=== PATIENT | male | born 1955 | race Caucasian/White ===

== ENCOUNTER 2020-09-12 11:29 | Outpatient (CLI) | payer MEDICARE | END 2020-09-12 11:30 | disposition home or self-care (01) | LOC: RAD 11:29 | PROVIDERS: ATTEND Physician Assistant Medical | DX: C22.0 Liver cell carcinoma (principal); I81 Portal vein thrombosis; B18.2 Chronic viral hepatitis C; K74.60 Unspecified cirrhosis of liver; R06.00 Dyspnea, unspecified | CPT/HCPCS: 71046 ==

== ENCOUNTER 2020-11-01 12:48 | Day surgery (SDC) | payer MEDICARE ==
[2020-11-01 10:35] VITALS: BMI 30.7
[2020-11-01 13:20] LABS: INR-International Normal Ratio 1.4; Prothrombin Time 16.8 sec (12.0-14.7)
[2020-11-01 13:21] LABS: PTT 35.5 sec (22.9-36.1)
[2020-11-01] MEDS ORDERED: Sodium Bicarbonate 2.5 MEQ/5 ML VIAL ONE (14:11)
[2020-11-01] MEDS ORDERED: Lidocaine 1% PF 5 ML VIAL ONE (14:11)
[2020-11-01 15:15] VITALS: BP 124/72; TEMP 98
== END 2020-11-01 15:15 | disposition home or self-care (01) ==
LOC: ULT 12:48 → EDSTATUS 13:00 → ULT 15:15
PROVIDERS: ATTEND Internal Medicine Critical Care Medicine
PROC: 0W993ZZ Drainage of Right Pleural Cavity, Percutaneous Approach (ICD-10-PCS; principal; 2020-11-01)
PROC: 0W9G3ZX Drainage of Peritoneal Cavity, Percutaneous Approach, Diagnostic (ICD-10-PCS; 2020-11-01)
DX: J90 Pleural effusion, not elsewhere classified (principal); K70.31 Alcoholic cirrhosis of liver with ascites; E11.9 Type 2 diabetes mellitus without complications; M10.9 Gout, unspecified; I10 Essential (primary) hypertension; G89.29 Other chronic pain; C22.0 Liver cell carcinoma; F10.11 Alcohol abuse, in remission; Z79.899 Other long term (current) drug therapy; Z91.048 Other nonmedicinal substance allergy status
CPT/HCPCS: 49083; 71045; 76942; 85610; 85730; 87070; 87205

== ENCOUNTER 2020-11-06 12:31 | Outpatient (CLI) | payer MEDICARE | END 2020-11-06 12:32 | disposition home or self-care (01) | LOC: BICRAD 12:31 | PROVIDERS: ATTEND Internal Medicine Critical Care Medicine | DX: R06.00 Dyspnea, unspecified (principal); J90 Pleural effusion, not elsewhere classified; J98.11 Atelectasis | CPT/HCPCS: 71046 ==

== ENCOUNTER → 2020-12-01 | Day surgery (SDC) | payer MEDICARE ==
[~2020-12-01] MED LIST: Lidocaine 1% PF 5 ML VIAL ONE; Sodium Bicarbonate 2.5 MEQ/5 ML VIAL ONE
[2020-12-01 08:08] LABS: #Eosinphils 0.2 thou/uL (0.0-0.7); #Lymphocytes 1.2 thou/uL (1.20-3.40); #Monocytes 0.4 thou/uL (0.11-0.59); #Neutrophils 2.9 thou/uL (1.40-6.50); %Basophils 0.8 % (0.0-1.0); %Eosinophils 4.6 % (0.0-10.0); %Lymphocytes 25.6 % (21.0-51.0); %Monocytes 8.2 % (0.0-10.0); %Neutrophils 60.8 % (42.0-75.0); Mean Corpuscular HGB CONC 32.5 g/dL (32.0-36.0); Mean Corpuscular Hemoglobin 33.2 pg (27.0-31.0); Mean Platelet Volume 7.8 fL (7.4-10.4); Platelet Count 85 thou/uL (130-400); RBC Distribution Width 16.7 % (11.5-14.5); Red Blood Cell (RBC) Count 4.52 mill/uL (4.70-6.10); White Blood Cell (WBC) Count 4.8 thou/uL (4.8-10.8)
[2020-12-01 08:17] LABS: INR-International Normal Ratio 1.3; Prothrombin Time 16.1 sec (12.0-14.7)
[2020-12-01 11:37] VITALS: BP 106/70
== END ==
LOC: ULT 07:50
PROVIDERS: ATTEND Internal Medicine Hematology & Oncology
PROC: 0W9G3ZZ Drainage of Peritoneal Cavity, Percutaneous Approach (ICD-10-PCS; principal; 2020-12-01)
PROC: 0W993ZZ Drainage of Right Pleural Cavity, Percutaneous Approach (ICD-10-PCS; 2020-12-01)
DX: J90 Pleural effusion, not elsewhere classified (principal); K74.60 Unspecified cirrhosis of liver; R18.8 Other ascites; C22.0 Liver cell carcinoma; I10 Essential (primary) hypertension; E11.9 Type 2 diabetes mellitus without complications; B19.20 Unspecified viral hepatitis C without hepatic coma; M10.9 Gout, unspecified; F10.11 Alcohol abuse, in remission; Z87.891 Personal history of nicotine dependence; Z79.01 Long term (current) use of anticoagulants; Z79.899 Other long term (current) drug therapy
CPT/HCPCS: 36415; 49083; 71045; 76942; 85025; 85610; 85730

== ENCOUNTER 2020-12-11 17:21 | Observation (INO) | payer MEDICARE ==
[2020-12-11 17:54] LABS: #Basophils 0.1 thou/uL (0.0-0.2); #Eosinphils 0.2 thou/uL (0.0-0.7); #Lymphocytes 1.4 thou/uL (1.20-3.40); #Monocytes 0.7 thou/uL (0.11-0.59); #Neutrophils 4.5 thou/uL (1.40-6.50); %Basophils 0.9 % (0.0-1.0); %Eosinophils 2.9 % (0.0-10.0); %Lymphocytes 20.8 % (21.0-51.0); %Monocytes 9.7 % (0.0-10.0); %Neutrophils 65.8 % (42.0-75.0); Hemoglobin 16.4 g/dL (14.0-18.0); Mean Corpuscular Hemoglobin 32.3 pg (27.0-31.0); Mean Corpuscular Volume 97.8 fL (78.0-98.0); Mean Platelet Volume 7.3 fL (7.4-10.4); Platelet Count 200 thou/uL (130-400); RBC Distribution Width 16.2 % (11.5-14.5); Red Blood Cell (RBC) Count 5.07 mill/uL (4.70-6.10); White Blood Cell (WBC) Count 6.8 thou/uL (4.8-10.8)
[2020-12-11 19:25] LABS: Albumin 2.5 g/dL (3.4-4.8)
[2020-12-11 19:26] LABS: Chloride 101 mmol/L (98-107); Potassium 4.7 mmol/L (3.5-5.1); Sodium 133 mmol/L (136-145)
[2020-12-11 19:27] LABS: Calcium 8.8 mg/dL (7.8-10.44)
[2020-12-11 19:28] LABS: Globulin 5.6 g/dL (2.4-3.5); Glucose 110 mg/dL (80-115); Protein, Total 8.1 g/dL (5.8-8.1)
[2020-12-11 19:29] LABS: Anion Gap 15 mmol/L (10-20); Bilirubin, Total 3.5 mg/dL (0.2-1.2); Carbon Dioxide 22 mmol/L (23-31)
[2020-12-11 19:30] LABS: Alkaline Phosphatase 78 U/L (40-110)
[2020-12-11 19:31] LABS: Calc. Creatinine Clearance 0 mL/min (70-130)
[2020-12-11 19:32] LABS: BUN (Urea Nitrogen) 19 mg/dL (8.4-25.7)
[2020-12-11 19:33] LABS: AST (SGOT) 189 U/L (5-34)
[2020-12-11 19:34] LABS: ALT (SGPT) 480 U/L (8-55)
[2020-12-11] MEDS ORDERED: Guaifenesin DM 100-10/5 ML UDCUP PO PRN (22:04)
[2020-12-11] MEDS ORDERED: Senokot S 8.6-50 MG TAB PO PRN (22:04)
[2020-12-11] MEDS ORDERED: Ondansetron PF 4 MG/2 ML Vial IVP PRN (22:04)
[2020-12-11] MEDS ORDERED: HYDROcodone/Acetaminophen 5/325 mg Tablet PO PRN (22:04)
[2020-12-11] MEDS ORDERED: Acetaminophen 325 MG TAB PO PRN (22:04)
[2020-12-11] MEDS ORDERED: HYDROcodone/Acetaminophen 7.5/325 mg Tablet PO PRN (22:04)
[2020-12-11] MEDS ORDERED: hydrALAZINE 20 MG/ML VIAL SLOW IVP PRN (22:09)
[2020-12-11] MEDS ORDERED: Famotidine/PF 20 mg/2ml Vial SLOW IVP SCH (23:00)
[2020-12-11] MEDS ORDERED: Dextrose 50% Abboject 50 ML SYRINGE SLOW IVP PRN (23:01)
[2020-12-11] MEDS ORDERED: Dextrose 5% in Water 1,000 ML IV PRN (23:01)
[2020-12-11 23:07] LABS: SARS-CoV-2 NAA Rapid Test Not Detected (NotDetected)
[2020-12-11 23:47] VITALS: BMI 28.1
[2020-12-12 00:32] LABS: Troponin I Less than 0.010 ng/mL (< 0.028)
[2020-12-12 06:54] LABS: Anion Gap 13 mmol/L (10-20); BUN (Urea Nitrogen) 19 mg/dL (8.4-25.7); Calc. Creatinine Clearance 110 mL/min (70-130); Calcium 8.5 mg/dL (7.8-10.44); Carbon Dioxide 18 mmol/L (23-31); Chloride 105 mmol/L (98-107); Glucose 93 mg/dL (80-115); Potassium 4.8 mmol/L (3.5-5.1); Sodium 131 mmol/L (136-145); Uric Acid 8.3 mg/dL (3.5-7.2)
[2020-12-12 08:01] LABS: Hemoglobin A1c 4.8 % (4.0-6.0)
[2020-12-12 08:09] LABS: INR-International Normal Ratio 1.4; Prothrombin Time 17.6 sec (12.0-14.7)
[2020-12-12 08:10] LABS: PTT 36.7 sec (22.9-36.1)
[2020-12-12] MEDS: Furosemide 40 MG TAB PO SCH (08:31)
[2020-12-12] MEDS: Spironolactone 100 MG TAB PO SCH (08:31)
[2020-12-12] MEDS: Propranolol 10 MG TAB PO SCH ×2 (08:31→20:07)
[2020-12-12] MEDS: Famotidine/PF 20 mg/2ml Vial SLOW IVP SCH ×2 (08:32→20:07)
[2020-12-12 08:48] LABS: #Eosinphils 0.1 thou/uL (0.0-0.7); #Monocytes 0.6 thou/uL (0.11-0.59); #Neutrophils 2.3 thou/uL (1.40-6.50); %Basophils 0.9 % (0.0-1.0); %Eosinophils 3.3 % (0.0-10.0); %Lymphocytes 25.2 % (21.0-51.0); %Monocytes 14.5 % (0.0-10.0); %Neutrophils 56.1 % (42.0-75.0); Hemoglobin 14.6 g/dL (14.0-18.0); Mean Corpuscular HGB CONC 34.7 g/dL (32.0-36.0); Mean Corpuscular Hemoglobin 33.9 pg (27.0-31.0); Mean Corpuscular Volume 97.6 fL (78.0-98.0); Mean Platelet Volume 7.5 fL (7.4-10.4); Platelet Count 112 thou/uL (130-400); Platelet Morphology Comment Appears Decreased; RBC Distribution Width 15.6 % (11.5-14.5); RBC Morphology Normal
[2020-12-12] MEDS ORDERED: LENVATINIB MESYLATE 4 MG PO SCH (09:00)
[2020-12-12 13:21] LABS: RBC Count-Automated (BF) 1888 /cu.mm; WBC/Nucleated-Auto (BF) 277 uL
[2020-12-12 13:24] LABS: BF Color Yellow; Body Fluid Source Pleural Fluid; Clarity Hazy (Clear); Tube # EDTA
[2020-12-12 13:33] LABS: Pleural Fluid, Protein 2.1 g/dL
[2020-12-12 13:42] LABS: BF Segmented Neutrophils 9 %; Cell Count Non Hematic 69 %; Eosinophils 2 %; Lymphocytes 18 %
[2020-12-13 05:46] LABS: #Eosinphils 0.1 thou/uL (0.0-0.7); #Monocytes 0.6 thou/uL (0.11-0.59); #Neutrophils 2.9 thou/uL (1.40-6.50); %Basophils 0.9 % (0.0-1.0); %Eosinophils 2.8 % (0.0-10.0); %Lymphocytes 21.5 % (21.0-51.0); %Monocytes 13.5 % (0.0-10.0); %Neutrophils 61.3 % (42.0-75.0); Hemoglobin 16.1 g/dL (14.0-18.0); Mean Corpuscular HGB CONC 33.9 g/dL (32.0-36.0); Mean Corpuscular Hemoglobin 33.4 pg (27.0-31.0); Mean Corpuscular Volume 98.6 fL (78.0-98.0); Mean Platelet Volume 7.4 fL (7.4-10.4); Platelet Count 130 thou/uL (130-400); White Blood Cell (WBC) Count 4.7 thou/uL (4.8-10.8)
[2020-12-13 06:07] LABS: ALT (SGPT) 482 U/L (8-55); AST (SGOT) 174 U/L (5-34); Albumin 2.2 g/dL (3.4-4.8); Alkaline Phosphatase 73 U/L (40-110); Anion Gap 11 mmol/L (10-20); BUN (Urea Nitrogen) 19 mg/dL (8.4-25.7); Bilirubin, Total 2.8 mg/dL (0.2-1.2); Calc. Creatinine Clearance 96 mL/min (70-130); Calcium 8.4 mg/dL (7.8-10.44); Carbon Dioxide 22 mmol/L (23-31); Chloride 104 mmol/L (98-107); Globulin 4.9 g/dL (2.4-3.5); Glucose 101 mg/dL (80-115); Potassium 4.2 mmol/L (3.5-5.1); Protein, Total 7.1 g/dL (5.8-8.1); Sodium 133 mmol/L (136-145)
[2020-12-13] MEDS: Spironolactone 100 MG TAB PO SCH (08:22)
[2020-12-13] MEDS: Propranolol 10 MG TAB PO SCH (08:22)
[2020-12-13] MEDS: Famotidine/PF 20 mg/2ml Vial SLOW IVP SCH (08:22)
[2020-12-13] MEDS: Furosemide 40 MG TAB PO SCH (08:22)
[2020-12-13 13:10] VITALS: BP 112/67; TEMP 97.5
[2020-12-15] MEDS ORDERED: FLU VACC QS2021-22(6MOS UP)/PF 60 MCG/0.5 ML SYRINGE IM ONE (09:00)
== END 2020-12-13 13:41 | disposition home or self-care (01) ==
LOC: ERS 17:21 → INTOOBSV 20:58 → ONC 20:58
PROVIDERS: ADMIT Internal Medicine; ATTEND Family Medicine
PROC: 0W9930Z Drainage of Right Pleural Cavity with Drainage Device, Percutaneous Approach (ICD-10-PCS; principal; 2020-12-12)
DX: K74.60 Unspecified cirrhosis of liver (principal); J91.8 Pleural effusion in other conditions classified elsewhere; R18.8 Other ascites; G93.41 Metabolic encephalopathy; C22.0 Liver cell carcinoma; I81 Portal vein thrombosis; M10.9 Gout, unspecified; R07.9 Chest pain, unspecified; E11.22 Type 2 diabetes mellitus with diabetic chronic kidney disease; N18.2 Chronic kidney disease, stage 2 (mild); D63.1 Anemia in chronic kidney disease; B18.2 Chronic viral hepatitis C; Z90.49 Acquired absence of other specified parts of digestive tract; Z20.822 Contact with and (suspected) exposure to COVID-19; Z79.01 Long term (current) use of anticoagulants; Z79.899 Other long term (current) drug therapy
CPT/HCPCS: 0240U; 32555; 71045 ×2; 71046; 76705; 80048; 80053 ×2; 82140; 82150; 82945; 82962 ×2; 83036; 83615; 83880; 83986 ×2; 84157; 84478; 84484 ×2; 84550; 85025 ×3; 85610; 85730; 87070; 87116; 87205; 87206 ×2; 89051; 93005; 96374; 96375; 96376 ×2; 99285; G0378 ×4; 36415; 36416; 85060; 88112; 88305; J2405; S0028

== ENCOUNTER 2020-12-19 12:30 | Outpatient (CLI) | payer MEDICARE | END 2020-12-19 12:31 | disposition home or self-care (01) | LOC: RAD 12:30 | PROVIDERS: ATTEND Internal Medicine Critical Care Medicine | DX: R06.00 Dyspnea, unspecified (principal); J90 Pleural effusion, not elsewhere classified | CPT/HCPCS: 71046 ==

== ENCOUNTER 2021-01-19 14:22 | Inpatient (IN) | payer MEDICARE ==
[~2021-01-19 14:22] MED LIST changes: +Iopamidol-370 76% 500 ML 1 ML ONE; -Lidocaine 1% PF 5 ML VIAL ONE; -Sodium Bicarbonate 2.5 MEQ/5 ML VIAL ONE
[2021-01-19] MEDS ORDERED: Furosemide 40 MG/4 ML VIAL ONE (14:52)
[2021-01-19] MEDS ORDERED: Cefepime 2 GM VIAL ONE (14:52)
[2021-01-19 14:57] LABS: #Eosinphils 0.1 thou/uL (0.0-0.7); #Lymphocytes 0.9 thou/uL (1.20-3.40); #Monocytes 0.4 thou/uL (0.11-0.59); #Neutrophils 3.5 thou/uL (1.40-6.50); %Basophils 0.8 % (0.0-1.0); %Lymphocytes 18.5 % (21.0-51.0); %Neutrophils 70.7 % (42.0-75.0); Hemoglobin 17.3 g/dL (14.0-18.0); Mean Corpuscular HGB CONC 33.4 g/dL (32.0-36.0); Mean Corpuscular Hemoglobin 33.2 pg (27.0-31.0); Mean Corpuscular Volume 99.4 fL (78.0-98.0); Mean Platelet Volume 7.5 fL (7.4-10.4); Platelet Count 95 thou/uL (130-400); RBC Distribution Width 16.4 % (11.5-14.5); Red Blood Cell (RBC) Count 5.23 mill/uL (4.70-6.10)
[2021-01-19 15:15] LABS: Platelet Morphology Comment Appears Decreased; RBC Morphology Normal
[2021-01-19 15:26] LABS: ALT (SGPT) 447 U/L (8-55); AST (SGOT) 181 U/L (5-34); Albumin 2.6 g/dL (3.4-4.8); Alkaline Phosphatase 87 U/L (40-110); Anion Gap 14 mmol/L (10-20); BUN (Urea Nitrogen) 18 mg/dL (8.4-25.7); Bilirubin, Total 4.2 mg/dL (0.2-1.2); Calc. Creatinine Clearance 0 mL/min (70-130); Calcium 9.3 mg/dL (7.8-10.44); Carbon Dioxide 21 mmol/L (23-31); Chloride 101 mmol/L (98-107); Globulin 6.2 g/dL (2.4-3.5); Glucose 124 mg/dL (80-115); Lipase 156 U/L (8-78); Magnesium 1.5 mg/dL (1.6-2.6); Potassium 4.8 mmol/L (3.5-5.1); Protein, Total 8.8 g/dL (5.8-8.1); Sodium 131 mmol/L (136-145)
[2021-01-19] MEDS ORDERED: Vancomycin 1 GM/200 ML BAG ONE (15:43)
[2021-01-19 17:25] LABS: Bilirubin Negative (Negative); Blood, Urine Negative (Negative); Clarity Clear (Clear); Glucose, Urine (Dipstick) Normal (Negative); Ketone, Urine Negative (Negative); Leukocyte Negative Leu/uL (Negative); Nitrite Negative (Negative); Protein, Urine (Dipstick) Negative (Neg-Trace); Urobilinogen Normal mg/dL (Less than 2)
[2021-01-19 18:11] LABS: Lactic Acid 3.4 mmol/L (0.5-2.2)
[2021-01-19] MEDS ORDERED: Ondansetron ODT 4 MG TAB SL PRN (20:15)
[2021-01-19] MEDS ORDERED: Ondansetron PF 4 MG/2 ML Vial IVP PRN (20:15)
[2021-01-19 20:32] VITALS: BMI 25.7
[2021-01-19] MEDS ORDERED: Dextrose 50% Abboject 50 ML SYRINGE SLOW IVP PRN (20:42)
[2021-01-19] MEDS ORDERED: Dextrose 5% in Water 1,000 ML IV PRN (20:42)
[2021-01-19] MEDS ORDERED: Electrolyte Replacement Protocol 1 EACH FS SCH (20:45)
[2021-01-19] MEDS ORDERED: Sodium Chloride 0.9% 500 ML IV SCH (20:45)
[2021-01-19] MEDS ORDERED: Vancomycin 1 GM in Premix Bag 1 BAG IVPB SCH (20:45)
[2021-01-19] MEDS ORDERED: Magnesium 2 GM/50 ML 2 GM in Premix Bag 1 BAG IVPB SCH (21:15)
[2021-01-19] MEDS ORDERED: Morphine IR Tab 15 MG TAB PO PRN (21:24)
[2021-01-19] MEDS: Propranolol 10 MG TAB PO SCH (21:44)
[2021-01-19] MEDS: Famotidine 20 MG TAB PO SCH (21:44)
[2021-01-20] MEDS: Cefepime 2 GM in Sodium Chloride 0.9% 100 ML IVPB SCH ×2 (03:11→15:15)
[2021-01-20] MEDS ORDERED: VANCOMYCIN 1.25 GM/250 ML BAG 1.25 GM in Premix Bag 1 BAG IVPB SCH (04:00)
[2021-01-20 04:48] LABS: INR-International Normal Ratio 1.5; Prothrombin Time 18.2 sec (12.0-14.7)
[2021-01-20 05:01] LABS: Hemoglobin 14.9 g/dL (14.0-18.0); Mean Corpuscular HGB CONC 32.7 g/dL (32.0-36.0); Mean Corpuscular Hemoglobin 32.7 pg (27.0-31.0); Mean Platelet Volume 7.9 fL (7.4-10.4); Platelet Count 74 thou/uL (130-400); RBC Distribution Width 16.2 % (11.5-14.5); Red Blood Cell (RBC) Count 4.54 mill/uL (4.70-6.10); White Blood Cell (WBC) Count 4.6 thou/uL (4.8-10.8)
[2021-01-20 05:02] LABS: Lymphocytes 14 % (21-51); MDiff Complete? YES; Macrocytosis SLIGHT = 6-15 cells (100X) (0-5/hpf); Monocytes 17 % (0-10); Neutrophil 69 % (42-75); Platelet Morphology Comment Appears Decreased
[2021-01-20 05:03] LABS: ALT (SGPT) 358 U/L (8-55); AST (SGOT) 130 U/L (5-34); Albumin 2.1 g/dL (3.4-4.8); Alkaline Phosphatase 69 U/L (40-110); Anion Gap 11 mmol/L (10-20); BUN (Urea Nitrogen) 17 mg/dL (8.4-25.7); Bilirubin, Total 3.3 mg/dL (0.2-1.2); Calc. Creatinine Clearance 78 mL/min (70-130); Calcium 8.4 mg/dL (7.8-10.44); Carbon Dioxide 20 mmol/L (23-31); Chloride 104 mmol/L (98-107); Globulin 4.6 g/dL (2.4-3.5); Glucose 84 mg/dL (80-115); Magnesium 1.9 mg/dL (1.6-2.6); Protein, Total 6.7 g/dL (5.8-8.1); Sodium 131 mmol/L (136-145)
[2021-01-20] MEDS: Furosemide 40 MG/4 ML VIAL SLOW IVP SCH ×2 (05:49→15:15)
[2021-01-20] MEDS ORDERED: Magnesium 2 GM/50 ML 2 GM in Premix Bag 1 BAG IVPB SCH (07:00)
[2021-01-20] MEDS: Famotidine 20 MG TAB PO SCH ×2 (08:17→22:01)
[2021-01-20] MEDS: Spironolactone 100 MG TAB PO SCH (08:17)
[2021-01-20] MEDS: Propranolol 10 MG TAB PO SCH ×3 (08:17→22:01)
[2021-01-20] MEDS: LENVATINIB MESYLATE 4 MG PO SCH (08:18)
[2021-01-20 14:29] LABS: SARS-CoV-2 PCR by NAA Not Detected (NotDetected)
[2021-01-20 17:15] LABS: Pleural Fluid, Protein 2.3 g/dL
[2021-01-20 17:26] LABS: RBC Count-Automated (BF) 1195 /cu.mm; WBC/Nucleated-Auto (BF) 210 /cu.mm
[2021-01-20 17:39] LABS: Body Fluid Source Thoracentesis Fluid; Tube # EDTA
[2021-01-20 17:40] LABS: BF Color Yellow; Clarity Hazy (Clear)
[2021-01-20 17:43] LABS: BF Segmented Neutrophils 9 %; Cell Count Non Hematic 76 %; Lymphocytes 15 %
[2021-01-21 04:16] LABS: Vancomycin, Trough 12.1 ug/mL
[2021-01-21 04:19] LABS: ALT (SGPT) 401 U/L (8-55); AST (SGOT) 146 U/L (5-34); Albumin 2.4 g/dL (3.4-4.8); Alkaline Phosphatase 78 U/L (40-110); Anion Gap 12 mmol/L (10-20); BUN (Urea Nitrogen) 21 mg/dL (8.4-25.7); Bilirubin, Total 3.3 mg/dL (0.2-1.2); Calc. Creatinine Clearance 69 mL/min (70-130); Calcium 9.1 mg/dL (7.8-10.44); Carbon Dioxide 24 mmol/L (23-31); Chloride 101 mmol/L (98-107); Globulin 5.2 g/dL (2.4-3.5); Glucose 117 mg/dL (80-115); Potassium 4.2 mmol/L (3.5-5.1); Protein, Total 7.6 g/dL (5.8-8.1); Sodium 133 mmol/L (136-145)
[2021-01-21 04:31] LABS: #Basophils 0.1 thou/uL (0.0-0.2); #Eosinphils 0.1 thou/uL (0.0-0.7); #Lymphocytes 1.3 thou/uL (1.20-3.40); #Monocytes 0.5 thou/uL (0.11-0.59); #Neutrophils 2.4 thou/uL (1.40-6.50); %Basophils 1.4 % (0.0-1.0); %Lymphocytes 29.9 % (21.0-51.0); %Monocytes 10.6 % (0.0-10.0); %Neutrophils 55.1 % (42.0-75.0); Hemoglobin 16.3 g/dL (14.0-18.0); Mean Corpuscular HGB CONC 33.1 g/dL (32.0-36.0); Mean Corpuscular Volume 99.5 fL (78.0-98.0); Mean Platelet Volume 7.4 fL (7.4-10.4); Platelet Count 89 thou/uL (130-400); RBC Distribution Width 16.3 % (11.5-14.5); Red Blood Cell (RBC) Count 4.94 mill/uL (4.70-6.10); White Blood Cell (WBC) Count 4.4 thou/uL (4.8-10.8)
[2021-01-21] MEDS ORDERED: Furosemide 40 MG TAB PO SCH (07:30)
[2021-01-21] MEDS ORDERED: Magnesium 2 GM/50 ML 2 GM in Premix Bag 1 BAG IVPB SCH (08:00)
[2021-01-21] MEDS: Spironolactone 100 MG TAB PO SCH (08:40)
[2021-01-21] MEDS: Famotidine 20 MG TAB PO SCH (08:40)
[2021-01-21] MEDS: Propranolol 10 MG TAB PO SCH (08:40)
[2021-01-21] MEDS: LENVATINIB MESYLATE 4 MG PO SCH (09:15)
[2021-01-21 12:43] VITALS: BP 110/77; TEMP 97.8
== END 2021-01-21 12:40 | disposition home or self-care (01) | DRG 435 ==
LOC: ERS 14:22 → 2NO 18:24
PROVIDERS: ADMIT Internal Medicine; ATTEND Internal Medicine
PROC: 0W993ZZ Drainage of Right Pleural Cavity, Percutaneous Approach (ICD-10-PCS; principal; 2021-01-20)
DX: C22.0 Liver cell carcinoma (principal); J96.01 Acute respiratory failure with hypoxia; R18.8 Other ascites; K76.6 Portal hypertension; E44.0 Moderate protein-calorie malnutrition; J91.0 Malignant pleural effusion; K74.60 Unspecified cirrhosis of liver; Z20.822 Contact with and (suspected) exposure to COVID-19; B18.2 Chronic viral hepatitis C; D64.9 Anemia, unspecified; D69.6 Thrombocytopenia, unspecified; E83.42 Hypomagnesemia; N18.2 Chronic kidney disease, stage 2 (mild); E11.22 Type 2 diabetes mellitus with diabetic chronic kidney disease; M10.9 Gout, unspecified; D63.1 Anemia in chronic kidney disease; Z68.25 Body mass index [BMI] 25.0-25.9, adult; Z79.899 Other long term (current) drug therapy; Z79.84 Long term (current) use of oral hypoglycemic drugs
CPT/HCPCS: 32555; 36415; 36416; 71045; 71275; 76705; 80053; 80202; 81003; 82140; 82150; 82945; 83605; 83615; 83690; 83735; 84157; 84443; 84478; 84484; 85025; 85060; 85610; 87040; 87070; 87086; 87102; 87116; 87205; 87206; 89051; 93005; J0692; J1642; J1940; J1956; J3370; J3475; J3490; J7050; Q9967; U0003; U0005

== ENCOUNTER 2021-01-29 02:33 | Emergency (ER) | payer MEDICARE ==
[2021-01-29 03:17] LABS: #Eosinphils 0.2 thou/uL (0.0-0.7); #Monocytes 1.1 thou/uL (0.11-0.59); #Neutrophils 5.6 thou/uL (1.40-6.50); %Basophils 0.6 % (0.0-1.0); %Eosinophils 1.9 % (0.0-10.0); %Monocytes 14.2 % (0.0-10.0); %Neutrophils 70.4 % (42.0-75.0); Hemoglobin 14.8 g/dL (14.0-18.0); Mean Corpuscular HGB CONC 33.2 g/dL (32.0-36.0); Mean Corpuscular Hemoglobin 33.6 pg (27.0-31.0); Mean Platelet Volume 7.3 fL (7.4-10.4); Platelet Count 126 thou/uL (130-400); RBC Distribution Width 16.3 % (11.5-14.5)
[2021-01-29 03:38] LABS: ALT (SGPT) 441 U/L (8-55); AST (SGOT) 151 U/L (5-34); Albumin 2.4 g/dL (3.4-4.8); Alkaline Phosphatase 74 U/L (40-110); Anion Gap 10 mmol/L (10-20); BUN (Urea Nitrogen) 39 mg/dL (8.4-25.7); Bilirubin, Total 2.9 mg/dL (0.2-1.2); Calc. Creatinine Clearance 0 mL/min (70-130); Calcium 8.6 mg/dL (7.8-10.44); Carbon Dioxide 24 mmol/L (23-31); Chloride 102 mmol/L (98-107); Globulin 4.9 g/dL (2.4-3.5); Glucose 124 mg/dL (80-115); Lipase 158 U/L (8-78); Potassium 4.8 mmol/L (3.5-5.1); Protein, Total 7.3 g/dL (5.8-8.1); Sodium 131 mmol/L (136-145)
== END 2021-01-29 04:00 | disposition home or self-care (01) ==
LOC: ERS 02:33
DX: C22.0 Liver cell carcinoma (principal); R53.0 Neoplastic (malignant) related fatigue; E11.9 Type 2 diabetes mellitus without complications; Z79.899 Other long term (current) drug therapy
CPT/HCPCS: 36415; 71045; 80053; 83690; 83880; 84484; 85025; 93005

== ENCOUNTER 2021-02-08 17:18 | Inpatient (IN) | payer MEDICARE, OTHER ==
[2021-02-08 18:07] LABS: #Eosinphils 0.2 thou/uL (0.0-0.7); #Lymphocytes 0.8 thou/uL (1.20-3.40); #Monocytes 0.8 thou/uL (0.11-0.59); #Neutrophils 3.7 thou/uL (1.40-6.50); %Basophils 0.7 % (0.0-1.0); %Eosinophils 3.1 % (0.0-10.0); %Lymphocytes 14.9 % (21.0-51.0); %Monocytes 14.8 % (0.0-10.0); %Neutrophils 66.5 % (42.0-75.0); Hemoglobin 15.6 g/dL (14.0-18.0); Mean Corpuscular HGB CONC 31.8 g/dL (32.0-36.0); Mean Corpuscular Hemoglobin 32.8 pg (27.0-31.0); Mean Platelet Volume 7.3 fL (7.4-10.4); Platelet Count 145 thou/uL (130-400); Red Blood Cell (RBC) Count 4.75 mill/uL (4.70-6.10); White Blood Cell (WBC) Count 5.5 thou/uL (4.8-10.8)
[2021-02-08 18:22] LABS: ALT (SGPT) 541 U/L (8-55); AST (SGOT) 207 U/L (5-34); Albumin 2.3 g/dL (3.4-4.8); Alkaline Phosphatase 80 U/L (40-110); Anion Gap 13 mmol/L (10-20); BUN (Urea Nitrogen) 21 mg/dL (8.4-25.7); Bilirubin, Total 3.6 mg/dL (0.2-1.2); Calc. Creatinine Clearance 0 mL/min (70-130); Calcium 8.8 mg/dL (7.8-10.44); Carbon Dioxide 19 mmol/L (23-31); Chloride 107 mmol/L (98-107); Globulin 5.3 g/dL (2.4-3.5); Glucose 107 mg/dL (80-115); Lipase 114 U/L (8-78); Potassium 4.8 mmol/L (3.5-5.1); Protein, Total 7.6 g/dL (5.8-8.1); Sodium 134 mmol/L (136-145)
[2021-02-08 18:38] LABS: Bilirubin Negative (Negative); Blood, Urine Negative (Negative); Clarity Clear (Clear); Glucose, Urine (Dipstick) Normal (Negative); Ketone, Urine Negative (Negative); Leukocyte Negative Leu/uL (Negative); Nitrite Negative (Negative); Protein, Urine (Dipstick) Negative (Neg-Trace); Specific Gravity, Urine 1.025 (1.002-1.036); pH, Urine 5.5 (5.0-9.0)
[2021-02-08] MEDS ORDERED: Ondansetron PF 4 MG/2 ML Vial ONE (19:49)
[2021-02-08] MEDS ORDERED: Morphine 4 MG/ML VIAL ONE (19:49)
[2021-02-08 21:03] LABS: Lactic Acid 2.6 mmol/L (0.5-2.2)
[2021-02-08 22:39] VITALS: BMI 30.2
[2021-02-08] MEDS ORDERED: Furosemide 20 MG TAB PO SCH (23:45)
[2021-02-08] MEDS ORDERED: Acetaminophen 325 MG TAB PO PRN (23:57)
[2021-02-08] MEDS ORDERED: Albumin 25% 25 GM/100 ML BOT IVPB SCH (23:59)
[2021-02-09] MEDS ORDERED: traMADol HCl 50 MG TAB PO PRN (00:01)
[2021-02-09] MEDS ORDERED: Dextrose 50% Abboject 50 ML SYRINGE SLOW IVP PRN (00:06)
[2021-02-09] MEDS ORDERED: Dextrose 5% in Water 1,000 ML IV PRN (00:06)
[2021-02-09] MEDS ORDERED: cefTRIAXone\\ROCEPHIN 1 GM in Sodium Chloride 0.9% 100 ML IVPB SCH (01:00)
[2021-02-09 06:36] LABS: Lactic Acid 1.5 mmol/L (0.5-2.2)
[2021-02-09 06:41] LABS: ALT (SGPT) 434 U/L (8-55); AST (SGOT) 157 U/L (5-34); Albumin 2.3 g/dL (3.4-4.8); Alkaline Phosphatase 62 U/L (40-110); Anion Gap 12 mmol/L (10-20); BUN (Urea Nitrogen) 21 mg/dL (8.4-25.7); Bilirubin, Total 3.5 mg/dL (0.2-1.2); Calc. Creatinine Clearance 116 mL/min (70-130); Calcium 8.8 mg/dL (7.8-10.44); Carbon Dioxide 20 mmol/L (23-31); Chloride 105 mmol/L (98-107); Globulin 4.7 g/dL (2.4-3.5); Glucose 111 mg/dL (80-115); Potassium 4.4 mmol/L (3.5-5.1); Sodium 133 mmol/L (136-145)
[2021-02-09 06:42] LABS: #Eosinphils 0.2 thou/uL (0.0-0.7); #Lymphocytes 0.8 thou/uL (1.20-3.40); #Monocytes 0.7 thou/uL (0.11-0.59); %Basophils 0.7 % (0.0-1.0); %Eosinophils 3.4 % (0.0-10.0); %Lymphocytes 17.4 % (21.0-51.0); %Monocytes 14.7 % (0.0-10.0); %Neutrophils 63.7 % (42.0-75.0); Hemoglobin 13.9 g/dL (14.0-18.0); Mean Corpuscular HGB CONC 32.3 g/dL (32.0-36.0); Mean Corpuscular Hemoglobin 33.8 pg (27.0-31.0); Mean Platelet Volume 7.1 fL (7.4-10.4); Platelet Count 118 thou/uL (130-400); Platelet Morphology Comment Appears Decreased; Red Blood Cell (RBC) Count 4.12 mill/uL (4.70-6.10); White Blood Cell (WBC) Count 4.7 thou/uL (4.8-10.8)
[2021-02-09] MEDS: Spironolactone 100 MG TAB PO SCH (08:23)
[2021-02-09] MEDS: Furosemide 40 MG TAB PO SCH ×2 (08:23→14:32)
[2021-02-09] MEDS ORDERED: Sodium Bicarbonate 2.5 MEQ/5 ML VIAL ONE (10:19)
[2021-02-09] MEDS ORDERED: Lidocaine 1% PF 5 ML VIAL ONE (10:19)
[2021-02-09] MEDS ORDERED: Furosemide 40 MG/4 ML VIAL SLOW IVP SCH (16:15)
[2021-02-09] MEDS: Morphine 4 MG/ML VIAL SLOW IVP PRN (16:24)
[2021-02-09] MEDS: Albumin 25% 25 GM/100 ML BOT IVPB SCH (16:24)
[2021-02-09 16:40] LABS: SARS-CoV-2 PCR by NAA Not Detected (NotDetected)
[2021-02-09 16:40] LABS: SARS-CoV-2 PCR by NAA Not Detected (NotDetected)
[2021-02-10] MEDS: Morphine 4 MG/ML VIAL SLOW IVP PRN ×4 (05:40→20:01)
[2021-02-10 06:34] LABS: #Eosinphils 0.1 thou/uL (0.0-0.7); #Lymphocytes 0.8 thou/uL (1.20-3.40); #Monocytes 0.6 thou/uL (0.11-0.59); #Neutrophils 3.1 thou/uL (1.40-6.50); %Basophils 0.6 % (0.0-1.0); %Eosinophils 2.7 % (0.0-10.0); %Lymphocytes 17.1 % (21.0-51.0); %Monocytes 12.5 % (0.0-10.0); %Neutrophils 67.2 % (42.0-75.0); Mean Corpuscular HGB CONC 32.4 g/dL (32.0-36.0); Mean Corpuscular Hemoglobin 33.4 pg (27.0-31.0); Mean Platelet Volume 7.3 fL (7.4-10.4); Platelet Count 139 thou/uL (130-400); RBC Distribution Width 15.8 % (11.5-14.5); White Blood Cell (WBC) Count 4.6 thou/uL (4.8-10.8)
[2021-02-10 06:59] LABS: ALT (SGPT) 384 U/L (8-55); AST (SGOT) 126 U/L (5-34); Albumin 2.4 g/dL (3.4-4.8); Alkaline Phosphatase 64 U/L (40-110); Anion Gap 12 mmol/L (10-20); BUN (Urea Nitrogen) 22 mg/dL (8.4-25.7); Bilirubin, Total 2.9 mg/dL (0.2-1.2); Calc. Creatinine Clearance 106 mL/min (70-130); Carbon Dioxide 23 mmol/L (23-31); Chloride 104 mmol/L (98-107); Globulin 4.4 g/dL (2.4-3.5); Glucose 119 mg/dL (80-115); Potassium 4.2 mmol/L (3.5-5.1); Protein, Total 6.8 g/dL (5.8-8.1); Sodium 135 mmol/L (136-145)
[2021-02-10] MEDS ORDERED: Prevnar 13-Val Conj/PF 0.5 ML SYRINGE IM ONE (09:00)
[2021-02-10] MEDS ORDERED: FLU VACC QS2021-22(6MOS UP)/PF 60 MCG/0.5 ML SYRINGE IM ONE (09:00)
[2021-02-10] MEDS: Spironolactone 100 MG TAB PO SCH (09:06)
[2021-02-10] MEDS: Furosemide 40 MG TAB PO SCH ×2 (09:06→13:33)
[2021-02-10] MEDS: Ondansetron PF 4 MG/2 ML Vial IVP PRN ×2 (13:33→20:51)
[2021-02-10] MEDS: Albumin 25% 25 GM/100 ML BOT IVPB SCH (17:19)
[2021-02-11 06:13] LABS: #Eosinphils 0.1 thou/uL (0.0-0.7); #Lymphocytes 0.7 thou/uL (1.20-3.40); #Monocytes 0.4 thou/uL (0.11-0.59); %Basophils 1.1 % (0.0-1.0); %Eosinophils 2.8 % (0.0-10.0); %Lymphocytes 17.2 % (21.0-51.0); %Monocytes 10.1 % (0.0-10.0); %Neutrophils 68.8 % (42.0-75.0); Hemoglobin 13.9 g/dL (14.0-18.0); MDiff Complete? YES; Macrocytosis SLIGHT = 6-15 cells (100X) (0-5/hpf); Mean Corpuscular HGB CONC 32.3 g/dL (32.0-36.0); Mean Corpuscular Hemoglobin 33.1 pg (27.0-31.0); Mean Platelet Volume 7.1 fL (7.4-10.4); Platelet Count 113 thou/uL (130-400); Platelet Morphology Comment Appears Decreased; RBC Distribution Width 15.5 % (11.5-14.5); Red Blood Cell (RBC) Count 4.21 mill/uL (4.70-6.10); White Blood Cell (WBC) Count 4.3 thou/uL (4.8-10.8)
[2021-02-11] MEDS: Furosemide 40 MG TAB PO SCH ×2 (08:30→14:13)
[2021-02-11] MEDS: Spironolactone 100 MG TAB PO SCH (08:30)
[2021-02-11] MEDS: Morphine 4 MG/ML VIAL SLOW IVP PRN ×2 (16:39→20:19)
[2021-02-12] MEDS: Ondansetron PF 4 MG/2 ML Vial IVP PRN (03:52)
[2021-02-12] MEDS: Morphine 4 MG/ML VIAL SLOW IVP PRN (07:05)
[2021-02-12 07:53] VITALS: BP 99/57; TEMP 97.5
[2021-02-12] MEDS: Spironolactone 100 MG TAB PO SCH (08:40)
[2021-02-12] MEDS: Furosemide 40 MG TAB PO SCH (08:40)
== END 2021-02-12 17:00 | disposition hospice, home (50) | DRG 432 ==
LOC: ERS 17:18 → MSONC 20:22 → OBSVTOIN 02-09 16:21
PROVIDERS: ADMIT Internal Medicine; ATTEND Internal Medicine
PROC: 0W9G3ZZ Drainage of Peritoneal Cavity, Percutaneous Approach (ICD-10-PCS; principal; 2021-02-09)
PROC: 0W993ZZ Drainage of Right Pleural Cavity, Percutaneous Approach (ICD-10-PCS; 2021-02-09)
DX: K74.60 Unspecified cirrhosis of liver (principal); J96.01 Acute respiratory failure with hypoxia; I81 Portal vein thrombosis; C22.0 Liver cell carcinoma; J94.8 Other specified pleural conditions; R18.8 Other ascites; K76.6 Portal hypertension; I85.10 Secondary esophageal varices without bleeding; R18.0 Malignant ascites; Z51.5 Encounter for palliative care; Z20.822 Contact with and (suspected) exposure to COVID-19; E11.9 Type 2 diabetes mellitus without complications; F12.10 Cannabis abuse, uncomplicated; I10 Essential (primary) hypertension; K72.10 Chronic hepatic failure without coma; B19.20 Unspecified viral hepatitis C without hepatic coma; R79.89 Other specified abnormal findings of blood chemistry; Z28.21 Immunization not carried out because of patient refusal; Z79.899 Other long term (current) drug therapy; Z79.01 Long term (current) use of anticoagulants; Z90.49 Acquired absence of other specified parts of digestive tract; Z80.1 Family history of malignant neoplasm of trachea, bronchus and lung
CPT/HCPCS: 36415; 36416; 49083; 71045; 74177; 80053; 81003; 82140; 83605; 83690; 85025; 93005; 96365; 96367; 96374; 96375; G0378; J0696; J1940; J2270; J2405; J3490; P9047; U0003; U0005

== ENCOUNTER 2021-03-27 02:16 | Inpatient (IN) | payer MEDICARE, OTHER ==
[2021-03-27 05:13] LABS: #Eosinphils 0.1 thou/uL (0.0-0.7); #Lymphocytes 0.6 thou/uL (1.20-3.40); #Monocytes 0.8 thou/uL (0.11-0.59); %Basophils 0.4 % (0.0-1.0); %Eosinophils 1.2 % (0.0-10.0); %Lymphocytes 6.5 % (21.0-51.0); %Monocytes 8.2 % (0.0-10.0); %Neutrophils 83.7 % (42.0-75.0); Hemoglobin 13.3 g/dL (14.0-18.0); Mean Corpuscular Hemoglobin 32.6 pg (27.0-31.0); Mean Platelet Volume 7.6 fL (7.4-10.4); Platelet Count 145 thou/uL (130-400); RBC Distribution Width 16.2 % (11.5-14.5); Red Blood Cell (RBC) Count 4.08 mill/uL (4.70-6.10); White Blood Cell (WBC) Count 9.5 thou/uL (4.8-10.8)
[2021-03-27 05:36] LABS: ALT (SGPT) 422 U/L (8-55); AST (SGOT) 303 U/L (5-34); Albumin 2.9 g/dL (3.4-4.8); Alkaline Phosphatase 141 U/L (40-110); Anion Gap 22 mmol/L (10-20); BUN (Urea Nitrogen) 54 mg/dL (8.4-25.7); Bilirubin, Total 9.3 mg/dL (0.2-1.2); CRP (Inflammatory) 3.39 mg/dL (= or < 0.5); Calc. Creatinine Clearance 0 mL/min (70-130); Calcium 9.6 mg/dL (7.8-10.44); Carbon Dioxide 14 mmol/L (23-31); Chloride 105 mmol/L (98-107); Glucose 84 mg/dL (80-115); Potassium 5.2 mmol/L (3.5-5.1); Protein, Total 8.9 g/dL (5.8-8.1); Sodium 136 mmol/L (136-145)
[2021-03-27] MEDS ORDERED: Cefepime 2 GM VIAL ONE (06:03)
[2021-03-27] MEDS ORDERED: Vancomycin 1 GM/200 ML BAG ONE ×2 (06:41→10:10)
[2021-03-27 06:43] LABS: Bilirubin 1+ (Negative); Blood, Urine Negative (Negative); Clarity Clear (Clear); Glucose, Urine (Dipstick) Normal (Negative); Ketone, Urine Negative (Negative); Leukocyte Negative Leu/uL (Negative); Nitrite Negative (Negative); Protein, Urine (Dipstick) 20 mg/dL (Neg-Trace); Specific Gravity, Urine 1.022 (1.002-1.036)
[2021-03-27] MEDS ORDERED: Ondansetron PF 4 MG/2 ML Vial IVP PRN (06:45)
[2021-03-27] MEDS ORDERED: Sodium Chloride 0.9% 1,000 ML IV SCH (06:45)
[2021-03-27] MEDS ORDERED: Ondansetron ODT 4 MG TAB PO PRN (06:45)
[2021-03-27] MEDS ORDERED: Acetaminophen 325 MG TAB PO PRN (08:30)
[2021-03-27] MEDS ORDERED: Morphine 4 MG/ML VIAL SLOW IVP PRN (08:36)
[2021-03-27] MEDS ORDERED: cefTRIAXone\\ROCEPHIN 1 GM VIAL ONE (08:50)
[2021-03-27] MEDS ORDERED: Furosemide 40 MG TAB PO SCH (09:00)
[2021-03-27] MEDS ORDERED: Propranolol 10 MG TAB PO SCH (09:00)
[2021-03-27] MEDS ORDERED: Furosemide 20 MG TAB PO SCH (09:00)
[2021-03-27] MEDS ORDERED: Vancomycin HCl 250 MG in Sodium Chloride 0.9% 100 ML IVPB SCH (09:30)
[2021-03-27 10:53] LABS: INR-International Normal Ratio 1.3; Prothrombin Time 16.4 sec (12.0-14.7)
[2021-03-27 10:54] LABS: PTT 32.8 sec (22.9-36.1)
[2021-03-27 11:00] LABS: Lactic Acid 1.8 mmol/L (0.5-2.2)
[2021-03-27] MEDS ORDERED: Furosemide 40 MG TAB ONE (11:40)
[2021-03-27] MEDS ORDERED: Cefepime 2 GM in Sodium Chloride 0.9% 100 ML IVPB SCH (14:00)
[2021-03-28] MEDS ORDERED: Spironolactone 100 MG TAB PO SCH (08:00)
[2021-03-28] MEDS ORDERED: VANCOMYCIN 1.25 GM/250 ML BAG 1.25 GM in Premix Bag 1 BAG IVPB SCH (08:00)
[2021-03-28] MEDS ORDERED: cefTRIAXone\\ROCEPHIN 1 GM in Sodium Chloride 0.9% 100 ML IVPB SCH (09:00)
== END 2021-03-27 13:56 | disposition home or self-care (01) | DRG 871 ==
LOC: SUATTDRO 02:16 → ERS 02:16 → ERHOLD 06:32
PROVIDERS: ADMIT Internal Medicine; ATTEND Internal Medicine
DX: A41.9 Sepsis, unspecified organism (principal); G93.41 Metabolic encephalopathy; K76.7 Hepatorenal syndrome; L03.115 Cellulitis of right lower limb; R18.8 Other ascites; N17.9 Acute kidney failure, unspecified; C22.0 Liver cell carcinoma; L03.116 Cellulitis of left lower limb; K74.60 Unspecified cirrhosis of liver; E11.9 Type 2 diabetes mellitus without complications; D64.9 Anemia, unspecified; D69.6 Thrombocytopenia, unspecified; B18.2 Chronic viral hepatitis C; I10 Essential (primary) hypertension; F03.90 Unspecified dementia, unspecified severity, without behavioral disturbance, psychotic disturbance, mood disturbance, and anxiety; Z91.81 History of falling; Z79.01 Long term (current) use of anticoagulants; Z79.899 Other long term (current) drug therapy; Z90.49 Acquired absence of other specified parts of digestive tract; Z80.9 Family history of malignant neoplasm, unspecified
CPT/HCPCS: 36415; 51701; 70450; 72125; 80053; 81003; 82140; 83605; 85025; 85610; 85730; 86140; 87040; 87086; 87149; 93005; 93970; 96365; 96375; J0692; J0696; J3370; J7050

== ENCOUNTER 2021-04-14 11:28 | Emergency (ER) | payer OTHER ==
[2021-04-14] MEDS ORDERED: Thiamine HCl 200 MG/2 ML VIAL SLOW IVP SCH (11:45)
[2021-04-14] MEDS ORDERED: Multivitamins, Adult 10 ML, Folic Acid 1 MG in Sodium Chloride 0.9% 1,000 ML IV SCH (11:45)
[2021-04-14] MEDS ORDERED: Magnesium 2 GM/50 ML 2 GM in Premix Bag 1 BAG IVPB SCH (11:45)
[2021-04-14 12:00] LABS: #Eosinphils 0.1 thou/uL (0.0-0.7); #Lymphocytes 1.5 thou/uL (1.20-3.40); #Monocytes 1.5 thou/uL (0.11-0.59); #Neutrophils 12.8 thou/uL (1.40-6.50); %Basophils 0.1 % (0.0-1.0); %Eosinophils 0.4 % (0.0-10.0); %Lymphocytes 9.3 % (21.0-51.0); %Monocytes 9.6 % (0.0-10.0); %Neutrophils 80.5 % (42.0-75.0); Hemoglobin 10.8 g/dL (14.0-18.0); Mean Corpuscular HGB CONC 32.5 g/dL (32.0-36.0); Mean Corpuscular Hemoglobin 33.7 pg (27.0-31.0); Mean Platelet Volume 9.1 fL (7.4-10.4); Platelet Count 153 thou/uL (130-400); RBC Distribution Width 20.6 % (11.5-14.5); Red Blood Cell (RBC) Count 3.19 mill/uL (4.70-6.10); White Blood Cell (WBC) Count 15.9 thou/uL (4.8-10.8)
[2021-04-14 12:25] LABS: ALT (SGPT) 356 U/L (8-55); AST (SGOT) 244 U/L (5-34); Albumin 1.9 g/dL (3.4-4.8); Alkaline Phosphatase 131 U/L (40-110); BUN (Urea Nitrogen) 122 mg/dL (8.4-25.7); Bilirubin, Total 20.7 mg/dL (0.2-1.2); Calc. Creatinine Clearance 0 mL/min (70-130); Calcium 8.7 mg/dL (7.8-10.44); Carbon Dioxide Less than 8 mmol/L (23-31); Chloride 114 mmol/L (98-107); Globulin 5.2 g/dL (2.4-3.5); Glucose 108 mg/dL (80-115); Potassium 6.9 mmol/L (3.5-5.1); Protein, Total 7.1 g/dL (5.8-8.1); Sodium 140 mmol/L (136-145)
[2021-04-14 12:27] LABS: Acetaminophen Less than 6.0 mcg/mL (10.0-30.0); Alcohol 11 mg/dL (Less than 10); CK (CPK) 142 U/L (30-200); Salicylate Less than 8.0 mg/dL (15.0-30.0)
[2021-04-14 12:46] LABS: Specific Gravity, Urine 1.025 (1.005-1.030); pH, Urine 6.5 (5.0-9.0)
[2021-04-14 12:55] LABS: Amphetamine Not Detected (NotDetected); Barbiturates Screen Not Detected (NotDetected); Benzodiazepine Screen Detected (NotDetected); Cocaine Metabolite Screen Not Detected (NotDetected); Methadone Not Detected (NotDetected); Methamphetamine Not Detected (NotDetected); Opiate Screen Detected (NotDetected); Oxycodone Screen Not Detected (NotDetected); Phencyclidine (PCP) Not Detected (NotDetected); THC/Cannabinoid Screen Detected (NotDetected); Tricyclic Screen Not Detected (NotDetected)
[2021-04-14 12:58] LABS: Clarity Hazy (Clear); Glucose, Urine (Dipstick) Unable to Interpret mg/dL (Negative); Ketone, Urine Unable to Interpret mg/dL (Negative); Leukocyte Unable to Interpret (Negative); Nitrite Unable to Interpret (Negative); Protein, Urine (Dipstick) Unable to Interpret mg/dL (Neg-Trace); Urobilinogen UNABLE TO INTERPRET mg/dL (Less than 2)
[2021-04-14 12:59] LABS: Bilirubin Unable to Interpret (Negative); Blood, Urine Unable to Interpret (Negative)
[2021-04-14 13:01] LABS: Bacteria/HPF 2+ HPF (None Seen); RBC/HPF None Seen HPF (0-3); Squamous Epithelial 0-3 HPF (0-3)
== END 2021-04-14 16:14 | disposition hospice, inpatient (51) ==
LOC: ERS 11:28
DX: C22.0 Liver cell carcinoma (principal); R41.82 Altered mental status, unspecified; K72.90 Hepatic failure, unspecified without coma; I95.9 Hypotension, unspecified; E11.9 Type 2 diabetes mellitus without complications; Z87.891 Personal history of nicotine dependence; Z79.899 Other long term (current) drug therapy
CPT/HCPCS: 51702; 71045; 72170; 80053; 80306; 80307; 81003; 81015; 82140; 82550; 83605; 83880; 85025; 87040; 87086; 93005; 94760; J3411; J7050